=== PATIENT | male | born 1935 | race Caucasian/White ===

== ENCOUNTER 2018-03-19 10:32 | Inpatient (IN) | payer MEDICARE ==
[2018-03-19 12:14] LABS: ABSOLUTE EOSINOPHILS # (AUTO) 0.2 10^3/uL (0.0-0.6); ABSOLUTE MONOCYTES (AUTO) 1.6 10^3/uL (0.1-1.4); ABSOLUTE NEUT (AUTO) 7.8 10^3/uL (1.7-8.2); BASOPHILS % (AUTO) 0.4 % (0-2); EOSINOPHILS % (AUTO) 1.8 % (0-6); HEMOGLOBIN 14.8 g/dL (13.5-17.0); LYMPHOCYTES % (AUTO) 17.2 % (13-45); MEAN CORPUSCULAR HEMOGLOBIN 31.1 pg (27.0-33.4); MEAN CORPUSCULAR HGB CONC 34.3 g/dL (32.0-36.0); MEAN CORPUSCULAR VOLUME 90 fl (80-97); MONOCYTES % (AUTO) 13.4 % (3-13); PLATELET COUNT 238 10^3/uL (150-450); RED BLOOD COUNT 4.76 10^6/uL (4.35-5.55); RED CELL DISTRIBUTION WIDTH 14.6 % (11.5-14.0); SEGMENTED NEUTROPHILS % (AUTO) 67.2 % (42-78); TOTAL CELLS COUNTED % (AUTO) 100 %; WHITE BLOOD COUNT 11.6 10^3/uL (4.0-10.5)
[2018-03-19 12:30] LABS: ALANINE AMINOTRANSFERASE 13 U/L (21-72); ALBUMIN 4.1 g/dL (3.5-5.0); ALKALINE PHOSPHATASE 100 U/L (38-126); ANION GAP 11 (5-19); ASPARTATE AMINO TRANSFERASE 16 U/L (17-59); BILIRUBIN,DIRECT 0.3 mg/dL (0.0-0.4); BLOOD UREA NITROGEN 8 mg/dL (7-20); CALCIUM 9.5 mg/dL (8.4-10.2); CARBON DIOXIDE 29 mmol/L (22-30); CHLORIDE 98 mmol/L (98-107); CREATINE KINASE 62 U/L (55-170); GLUCOSE 116 mg/dL (75-110); POTASSIUM 4.3 mmol/L (3.6-5.0); SODIUM 137.6 mmol/L (137-145)
[2018-03-19 12:42] LABS: APPEARANCE,URINE SLIGHTLY-CLOUDY; BILIRUBIN,URINE NEGATIVE (NEGATIVE); COLOR,URINE YELLOW; GLUCOSE, URINE NEGATIVE (NEGATIVE); KETONES,URINE NEGATIVE (NEGATIVE); LEUKOCYTE ESTERASE,URINE TRACE (NEGATIVE); NITRITE,URINE POSITIVE (NEGATIVE); PROTEIN,URINE 30 mg/dL (NEGATIVE); URINE SPECIFIC GRAVITY 1.016
[2018-03-19 12:42] LABS: CREATINE KINASE MB 1.26 ng/mL (<4.55)
[2018-03-19 12:48] LABS: TROPONIN I < 0.012 ng/mL
[2018-03-19 13:07] LABS: AMORPHOUS SEDIMENT,URINE 2 /HPF
--- NOTE | 2018-03-19 14:08 | RADIOLOGY REPORT (SQ) ---
EXAM DESCRIPTION: CTA CHEST COMPLETED DATE/TIME: 03/19/2018 1:41 pm REASON FOR STUDY: acute hypoxia COMPARISON: CT chest, 04/23/2010 TECHNIQUE: CT scan of the chest performed using helical scanning technique with dynamic intravenous contrast injection. Images reviewed with lung, soft tissue and bone windows. Reconstructed coronal and sagittal MPR images reviewed. Additional 3 dimensional post-processing performed to develop Maximal Intensity Projection images ([place] P). All images stored on PACS. All CT scanners at this facility use dose modulation, iterative reconstruction, and/or weight based d osing when appropriate to reduce radiation dose to as low as reasonably achievable (ALARA). [facility]: Dose Right [facility]: CareDose [facility]: Dose Right [facility]: Teradose 4D [facility]: [employer] CONTRAST TYPE AND DOSE: contrast/concentration: Isovue 350.00 mg/ml; Total Contrast Delivered: 84.0 ml; Total Saline Delivered: 82.1 ml Contrast bolus optimized for the pulmonary arteries. Not diagnostic for the aorta. RENAL FUNCTION: GFR > 60. RADIATION DOSE: CT Rad equipment meets quality standard of care and radiation dose reduction techniq ues were employed. CTDIvol: 16.5 - 24.4 mGy. DLP: 972 mGy-cm. . LIMITATIONS: Breath motion artifact. FINDINGS: LUNGS AND PLEURA: No masses, infiltrates, or pneumothorax. No pleural effusions or pleura l calcifications. Diffuse bilateral bronchial wall thickening. AORTA AND GREAT VESSELS: No aneurysm. Contrast bolus not optimized for the aorta. Calcific atherosc lerosis. HEART: No pericardial effusion. Three-vessel coronary artery calcifications. PULMONARY ARTERIES: No emboli visualized in the main pulmonary arteries or the segmental branches. HILAR AND MEDIASTINAL STRUCTURES: No identified masses or abnormal nodes. HARDWARE: None in the chest. UPPER ABDOMEN: No significant findings. Limited exam. THYROID AND OTHER SOFT TISSUES: No masses. No adenopathy. 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 3D MIPS: Confirm above findings. OTHER: No other significant finding. IMPRESSION: 1. Examination is limited by breath motion artifact, particularly in the bilateral lung bases. Within this limitation, negative examination for pulmonary embolism through the segmental pu lmonary arterial level. 2. Diffuse bilateral nonspecific infectious or inflammatory bronchial wall thickening. 3. Coronary artery disease. COMMENT: Quality ID # [id number]: Final reports with documentation of one or more dose reduction techniques (e.g., Automated exposure control, adjustment of the mA and/or kV according to patient size, use of iterative reconstruction technique) TECHNICAL DOCUMENTATION: JOB ID: [id number] [employer]- All Rights Reserved Reading location - IP/workstation name: [email or web address]
[2018-03-19] MEDS: IPRATROPIUM/ALBUTEROL 0.5-2.5 MG/3 ML AMPUL NEB SCH ×5 (14:25→22:08)
[2018-03-19] MEDS: LEVOFLOXACIN 750 MG/D5W RTU 750 MG/150 ML RTUPB IV SCH (14:25)
[2018-03-19] MEDS: NORMAL SALINE 1000 ML 1,000 ML IV PRN (14:26)
[2018-03-19] MEDS: METHYLPREDNISOLONE INJ 125 MG/2 ML SDV IV SCH ×2 (14:26→21:58)
[2018-03-19 18:10] LABS: ARTERIAL BLOOD BASE EXCESS 0.1 mmol/L; ARTERIAL BLOOD H2CO3 0.91 mmol/L (1.05-1.35); ARTERIAL BLOOD HCO3 22.3 mmol/L (20-24); ARTERIAL BLOOD O2 SATURATION 95.1 % (94-98); ARTERIAL BLOOD PCO2 30.1 mmHg (35-45); ARTERIAL BLOOD PH 7.49 (7.35-7.45); ARTERIAL BLOOD PO2 68.1 mmHg (80-100); ARTERIAL BLOOD TOTAL CO2 23.2 mmol/L (23-27)
[2018-03-19 18:11] LABS: ARTERIAL BLOOD FIO2 ROOM AIR
--- NOTE | 2018-03-19 19:58 | PDOC H&P ---
History of Present Illness Admission Date/PCP: 03/19/18 14:53 DANIEL ROWE MD History of Present Illness: VIN LA JR is a 82 year old male, He has a history of coronary artery disease status post coronary artery stent placement, peripheral vascular disease status post stent placements of the peripheral blood vessels of the lower extremities, COPD, more than 30-year pack smoking history still a current smoker he came to the office today without any appointment for evaluation of shortness of breath and wheezing he was audibly wheezing in respiratory distress in the office the oxygen saturation was 87%. He was admitted directly from the office to the hospital ,arterial blood gas on room air was done, it demonstrated pH 7.49, PCO2 30.1 PO2 68.1 bicarbonate 22.3. CTA chest was done ,Pulmonary embolism was ruled out, the CTA chest demonstrated diffuse bilateral bronchial wall thickening. There was no pulmonary parenchymal consolidation Past Medical History Cardiac Medical History: Reports: Coronary Artery Disease - STENTS X3, Myocardial Infarction, Hyperlipidema, Hypertension Pulmonary Medical History: Reports: Chronic Obstructive Pulmonary Disease (COPD), Pneumonia Musculoskeltal Medical History: Reports: Arthritis - SHOULDERS Past Surgical History Past Surgical History: Reports: Cardiac Catheterization - stents placed Social History Smoking Status: Current Some Day Smoker - Advance Directive Resuscitation Status: Full Code Family History Parental Family History Reviewed: Yes Children Family History Reviewed: Yes Sibling(s) Family History Reviewed.: Yes Medication/Allergy Home Medications: Amlodipine Besylate [Norvasc 5 mg Tablet] 5 mg PO DAILY 03/19/18 Atorvastatin Calcium [Lipitor 40 mg Tablet] 40 mg PO DAILY 03/19/18 Carvedilol [Coreg 6.25 mg Tablet] 6.25 mg PO Q12 03/19/18 Clopidogrel Bisulfate [Plavix 75 mg Tablet] 75 mg PO DAILY 03/19/18 Losartan Potassium [Cozaar 100 mg Tablet] 100 mg PO DAILY 03/19/18 Metformin HCl [Metformin ER Osmotic] 500 mg PO DAILY 03/19/18 Tiotropium [place] [Spiriva Handihaler 5 Cap/Kit (18 Mcg/Cap)] 1 cap IN DAILY 03/19/18 Allergies/Adverse Reactions: codeine [Codeine] Allergy (Severe, Verified 03/19/18 16:29) Anaphylaxis Penicillins Allergy (Severe, Verified 03/19/18 16:29) Anaphylaxis aspirin [Aspirin] Allergy (Mild, Verified 03/19/18 16:29) RASH Review of Systems Constitutional: ABSENT: chills, fever(s), headache(s), weight gain, weight loss Eyes: ABSENT: visual disturbances Ears: ABSENT: hearing changes Cardiovascular: ABSENT: chest pain, dyspnea on exertion, edema, orthropnea, palpitations Respiratory: PRESENT: cough, dyspnea, sputum Gastrointestinal: ABSENT: abdominal pain, constipation, diarrhea, hematemesis, hematochezia, nausea, vomiting Genitourinary: ABSENT: dysuria, hematuria Musculoskeletal: ABSENT: joint swelling Integumentary: ABSENT: rash, wounds Neurological: ABSENT: abnormal gait, abnormal speech, confusion, dizziness, foc al weakness, syncope Psychiatric: ABSENT: anxiety, depression, homidical ideation, suicidal ideation Endocrine: ABSENT: cold intolerance, heat intolerance, menstrual abnormalities, polydipsia, polyuria Hematologic/Lymphatic: ABSENT: easy bleeding, easy bruising, lymphadenopathy Physical Exam Vital Signs: Temp Pulse Resp BP Pulse Ox 98.0 F 75 19 138/72 H 94 03/19/18 16:30 03/19/18 10:45 03/19/18 18:01 03/19/18 18:01 03/19/18 18:56 Intake & Output 03/18/18 03/19/18 03/20/18 06:59 06:59 06:59 Intake Total 150 Balance 150 Weight 99.9 kg General appearance: PRESENT: mild distress Head exam: PRESENT: atraumatic, normocephalic Eye exam: PRESENT: PERRLA Ear exam: PRESENT: normal external ear exam Mouth exam: PRESENT: moist, tongue midline Neck exam: PRESENT: full ROM Respiratory exam: PRESENT: wheezes Cardiovascular exam: PRESENT: RRR, +S1, +S2 Pulses: PRESENT: normal dorsalis pedis pul, +2 pedal pulses bilateral Vascular exam: PRESENT: normal capillary refill GI/Abdominal exam: PRESENT: normal bowel sounds, soft Rectal exam: PRESENT: deferred Neurological exam: PRESENT: alert, CN II-XII grossly intact Psychiatric exam: PRESENT: appropriate affect, normal mood Skin exam: PRESENT: dry, intact, warm Results Laboratory Results: 03/19/18 11:51 03/19/18 11:51 03/19/18 03/19/18 03/19/18 11:51 11:51 12:07 WBC 11.6 H RBC 4.76 Hgb 14.8 Hct 43.0 MCV 90 MCH 31.1 MCHC 34.3 RDW 14.6 H Plt Count 238 Seg Neutrophils % 67.2 Lymphocytes % 17.2 Monocytes % 13.4 H Eosinophils % 1.8 Basophils % 0.4 Absolute Neutrophils 7.8 Absolute Lymphocytes 2.0 Absolute Monocytes 1.6 H Absolute Eosinophils 0.2 Absolute Basophils 0.0 Carbonic Acid HCO3/H2CO3 Ratio ABG pH ABG pCO2 ABG pO2 ABG HCO3 ABG O2 Saturation ABG Base Excess FiO2 Sodium 137.6 Potassium 4.3 Chloride 98 Carbon Dioxide 29 Anion Gap 11 BUN 8 Creatinine 0.62 Est GFR ( Amer) > 60 Est GFR (Non-Af Amer) > 60 Glucose 116 H Calcium 9.5 Total Bilirubin 1.0 AST 16 L ALT 13 L Alkaline Phosphatase 100 Total Protein 7.0 Albumin 4.1 Urine Color YELLOW Urine Appearance SLIGHTLY-CLOUDY Urine pH 6.0 Ur Specific [place] 1.016 Urine Protein 30 H Urine Glucose (UA) NEGATIVE Urine Ketones NEGATIVE Urine Blood SMALL H Urine Nitrite POSITIVE H Ur Leukocyte Esterase TRACE H Urine WBC (Auto) 5 Urine RBC (Auto) 3 03/19/18 17:49 WBC RBC Hgb Hct MCV MCH MCHC RDW Plt Count Seg Neutrophils % Lymphocytes % Monocytes % Eosinophils % Basophils % Absolute Neutrophils Absolute Lymphocytes Absolute Monocytes Absolute Eosinophils Absolute Basophils Carbonic Acid 0.91 L HCO3/H2CO3 Ratio 24:1 ABG pH 7.49 H ABG pCO2 30.1 L ABG pO2 68.1 L ABG HCO3 22.3 ABG O2 Saturation 95.1 ABG Base Excess 0.1 FiO2 ROOM AIR Sodium Potassium Chloride Carbon Dioxide Anion Gap BUN Creatinine Est GFR ( Amer) Est GFR (Non-Af Amer) Glucose Calcium Total Bilirubin AST ALT Alkaline Phosphatase Total Protein Albumin Urine Color Urine Appearance Urine pH Ur Specific [place] Urine Protein Urine Glucose (UA) Urine Ketones Urine Blood Urine Nitrite Ur Leukocyte Esterase Urine WBC (Auto) Urine RBC (Auto) 03/19/18 03/19/18 11:51 11:51 Creatine Kinase 62 CK-MB (CK-2) 1.26 Troponin I < 0.012 Impressions: Chest/Abdomen CTA 03/19/18 00:00 IMPRESSION: 1. Examination is limited by breath motion artifact, particularly in the bilateral lung bases. Within this limitation, negative examination for pulmonary embolism through the segmental pulmonary arterial level. 2. Diffuse bilateral nonspecific infectious or inflammatory bronchial wall thickening. 3. Coronary artery disease. Assessment & Plan - Diagnosis (1) Acute hypoxemic respiratory failure Is this a current diagnosis for this admission?: Yes Plan: Continue oxygen via nasal cannula patient does not presently require noninvasive positive pressure ventilation with BiPAP (2) Respiratory alkalosis Is this a current diagnosis for this admission?: Yes (3) Chronic obstructive pulmonary disease with (acute) exacerbation Is this a current diagnosis for this admission?: Yes Plan: Start IV Solu-Medrol, bronchodilators, IV antibiotic (4) Coronary artery disease Qualifiers: Coronary Disease-Associated Artery/Lesion type: [place] artery [place] vs. transplanted heart: [place] heart Associated angina: without angina Qualified Code(s): I25.10 - Atherosclerotic heart disease of [place] coronary artery without angina pectoris Is this a current diagnosis for this admission?: Yes (5) Peripheral vascular disease Is this a current diagnosis for this admission?: Yes
[2018-03-19] MEDS ORDERED: METFORMIN HCL 500 MG PO SCH (20:00)
[2018-03-19] MEDS ORDERED: ENOXAPARIN SODIUM INJ 30 MG/0.3 ML DISP.SYRIN SUBCUT SCH (20:00)
[2018-03-19 20:53] LABS: CREATINE KINASE MB 1.07 ng/mL (<4.55)
[2018-03-19 20:56] LABS: TROPONIN I < 0.012 ng/mL
[2018-03-19] MEDS: ATORVASTATIN CALCIUM 40 MG TABLET PO SCH (21:58)
[2018-03-19] MEDS: LOSARTAN POTASSIUM 50 MG TABLET PO SCH (21:59)
[2018-03-19] MEDS: AMLODIPINE BESYLATE 5 MG TABLET PO SCH (21:59)
[2018-03-19] MEDS: METFORMIN HCL 500 MG TABLET PO SCH (21:59)
[2018-03-19] MEDS: ENOXAPARIN SODIUM INJ 40 MG/0.4 ML DISP.SYRIN SUBCUT SCH (22:00)
[2018-03-19] MEDS: CLOPIDOGREL BISULFATE 75 MG TABLET PO SCH (22:00)
--- NOTE | 2018-03-19 23:19 | EKG REPORT ---
SEVERITY:- ABNORMAL ECG - SINUS RHYTHM FIRST DEGREE AV BLOCK ABNRM R PROG, CONSIDER ASMI OR LEAD PLACEMENT : Confirmed by: Elzbieta Urrutia MD 19-Mar-2018 23:19:14
[2018-03-20] MEDS: IPRATROPIUM/ALBUTEROL 0.5-2.5 MG/3 ML AMPUL NEB SCH ×9 (00:23→16:46)
[2018-03-20] MEDS: NORMAL SALINE 1000 ML 1,000 ML IV PRN (03:07)
[2018-03-20 05:25] LABS: CREATINE KINASE MB 1.79 ng/mL (<4.55)
[2018-03-20 05:29] LABS: TROPONIN I < 0.012 ng/mL
[2018-03-20] MEDS: METHYLPREDNISOLONE INJ 125 MG/2 ML SDV IV SCH ×3 (05:49→21:52)
[2018-03-20] MEDS ORDERED: LOSARTAN POTASSIUM 50 MG TABLET PO SCH (10:00)
[2018-03-20] MEDS: AMLODIPINE BESYLATE 5 MG TABLET PO SCH (10:34)
[2018-03-20] MEDS: CLOPIDOGREL BISULFATE 75 MG TABLET PO SCH (10:35)
[2018-03-20] MEDS: ENOXAPARIN SODIUM INJ 40 MG/0.4 ML DISP.SYRIN SUBCUT SCH (10:35)
[2018-03-20] MEDS: METFORMIN HCL 500 MG TABLET PO SCH (10:35)
[2018-03-20] MEDS: LOSARTAN POTASSIUM 50 MG TABLET PO SCH (10:35)
[2018-03-20] MEDS: TIOTROPIUM BROMIDE DPI 5 CAP/KIT (18 MCG/CAP) IH SCH (10:38)
[2018-03-20] MEDS: LEVOFLOXACIN 750 MG/D5W RTU 750 MG/150 ML RTUPB IV SCH (10:38)
--- NOTE | 2018-03-20 18:25 | PDOC PROGRESS REPORT ---
Subjective Progress Note for:: 03/20/18 Subjective:: Patient was seen by the bedside, he was admitted yesterday for the management of acute COPD exacerbation associated with acute respiratory failure presently on IV Solu-Medrol, he was on bronchodilators every 2 hours Reason For Visit: ACUTE HYPOXIMIA,RESP FAILURE,PE?,COPD,CAD Physical Exam Vital Signs: Temp Pulse Resp BP Pulse Ox 98.6 F 100 18 109/63 96 03/20/18 15:17 03/20/18 16:46 03/20/18 16:46 03/20/18 15:17 03/20/18 16:46 Intake & Output 03/19/18 03/20/18 03/21/18 06:59 06:59 06:59 Intake Total 1150 Balance 1150 Weight 100.6 kg Head exam: PRESENT: atraumatic, normocephalic Eye exam: PRESENT: PERRLA Respiratory exam: PRESENT: clear to auscultation lillian Cardiovascular exam: PRESENT: +S1, +S2 Neurological exam: PRESENT: alert Results Laboratory Results: 03/19/18 11:51 03/19/18 11:51 03/19/18 03/19/18 03/19/18 11:51 11:51 20:00 Creatine Kinase 62 68 CK-MB (CK-2) 1.26 Troponin I < 0.012 03/19/18 03/20/18 03/20/18 20:00 03:57 03:57 Creatine Kinase 80 CK-MB (CK-2) 1.07 1.79 Troponin I < 0.012 < 0.012 Impressions: Chest/Abdomen CTA 03/19/18 00:00 IMPRESSION: 1. Examination is limited by breath motion artifact, particularly in the bilateral lung bases. Within this limitation, negative examination for pulmonary embolism through the segmental pulmonary arterial level. 2. Diffuse bilateral nonspecific infectious or inflammatory bronchial wall thickening. 3. Coronary artery disease. Assessment & Plan - Diagnosis (1) Acute hypoxemic respiratory failure Is this a current diagnosis for this admission?: Yes (2) Respiratory alkalosis Is this a current diagnosis for this admission?: Yes (3) Chronic obstructive pulmonary disease with (acute) exacerbation Is this a current diagnosis for this admission?: Yes Plan: Continue high-dose Solu-Medrol, 125 mg IV every 8 for a total of 3 days, reduce frequency of bronchodilators to every 4-6 hours from every 2 hours (4) Coronary artery disease Qualifiers: Coronary Disease-Associated Artery/Lesion type: [place] artery [place] vs. transplanted heart: [place] heart Associated angina: without angina Qualified Code(s): I25.10 - Atherosclerotic heart disease of [place] coronary artery without angina pectoris Is this a current diagnosis for this admission?: Yes Plan: Continue maintainnance therapy (5) Peripheral vascular disease Is this a current diagnosis for this admission?: Yes
[2018-03-20] MEDS: IPRATROPIUM/ALBUTEROL 0.5-2.5 MG/3 ML AMPUL NEB PRN (20:45)
[2018-03-20] MEDS: ATORVASTATIN CALCIUM 40 MG TABLET PO SCH (21:52)
[2018-03-21] MEDS: IPRATROPIUM/ALBUTEROL 0.5-2.5 MG/3 ML AMPUL NEB PRN ×3 (00:13→12:07)
[2018-03-21] MEDS: METHYLPREDNISOLONE INJ 125 MG/2 ML SDV IV SCH ×3 (05:55→21:31)
[2018-03-21] MEDS: LOSARTAN POTASSIUM 50 MG TABLET PO SCH (10:09)
[2018-03-21] MEDS: LEVOFLOXACIN 750 MG TABLET PO SCH (10:10)
[2018-03-21] MEDS: METFORMIN HCL 500 MG TABLET PO SCH (10:11)
[2018-03-21] MEDS: CLOPIDOGREL BISULFATE 75 MG TABLET PO SCH (10:12)
[2018-03-21] MEDS: AMLODIPINE BESYLATE 5 MG TABLET PO SCH (10:12)
[2018-03-21] MEDS: ENOXAPARIN SODIUM INJ 40 MG/0.4 ML DISP.SYRIN SUBCUT SCH (10:14)
[2018-03-21] MEDS: TIOTROPIUM BROMIDE DPI 5 CAP/KIT (18 MCG/CAP) IH SCH (10:19)
[2018-03-21] MEDS: GUAIFENESIN 600 MG TABLET.SA PO SCH ×2 (11:05→21:31)
[2018-03-21] MEDS: NICOTINE 21 MG/24 HR PATCH.TD24 TD SCH (11:46)
--- NOTE | 2018-03-21 16:35 | PDOC PROGRESS REPORT ---
Subjective Progress Note for:: 03/21/18 Subjective:: Patient was seen by the bedside, is not ready for discharge yet, he will continue IV Solu-Medrol for another day, hopefully transition to p.o. prednisone tomorrow Reason For Visit: ACUTE HYPOXIMIA,RESP FAILURE,PE?,COPD,CAD Physical Exam Vital Signs: Temp Pulse Resp BP Pulse Ox 97.6 F 87 22 H 129/62 H 100 03/21/18 15:58 03/21/18 15:58 03/21/18 15:58 03/21/18 15:58 03/21/18 15:58 Intake & Output 03/20/18 03/21/18 03/22/18 06:59 06:59 06:59 Intake Total 1150 1050 350 Balance 1150 1050 350 Weight 100.6 kg 100.2 kg General appearance: PRESENT: mild distress Eye exam: PRESENT: PERRLA Respiratory exam: PRESENT: wheezes Cardiovascular exam: PRESENT: +S1, +S2 GI/Abdominal exam: PRESENT: soft Neurological exam: PRESENT: alert Results Laboratory Results: 03/19/18 11:51 03/19/18 11:51 03/19/18 03/19/18 03/19/18 11:51 11:51 20:00 Creatine Kinase 62 68 CK-MB (CK-2) 1.26 Troponin I < 0.012 03/19/18 03/20/18 03/20/18 20:00 03:57 03:57 Creatine Kinase 80 CK-MB (CK-2) 1.07 1.79 Troponin I < 0.012 < 0.012 Impressions: Chest/Abdomen CTA 03/19/18 00:00 IMPRESSION: 1. Examination is limited by breath motion artifact, particularly in the bilateral lung bases. Within this limitation, negative examination for pulmonary embolism through the segmental pulmonary arterial level. 2. Diffuse bilateral nonspecific infectious or inflammatory bronchial wall thickening. 3. Coronary artery disease. Assessment & Plan - Diagnosis (1) Acute hypoxemic respiratory failure Is this a current diagnosis for this admission?: Yes (2) Respiratory alkalosis Is this a current diagnosis for this admission?: Yes (3) Chronic obstructive pulmonary disease with (acute) exacerbation Is this a current diagnosis for this admission?: Yes Plan: Continue IV Solu-Medrol, bronchodilators, antibiotic (4) Coronary artery disease Qualifiers: Coronary Disease-Associated Artery/Lesion type: [place] artery [place] vs. transplanted heart: [place] heart Associated angina: without angina Qualified Code(s): I25.10 - Atherosclerotic heart disease of [place] coronary artery without angina pectoris Is this a current diagnosis for this admission?: Yes (5) Peripheral vascular disease Is this a current diagnosis for this admission?: Yes
[2018-03-21] MEDS: ATORVASTATIN CALCIUM 40 MG TABLET PO SCH (21:31)
[2018-03-22] MEDS: METHYLPREDNISOLONE INJ 125 MG/2 ML SDV IV SCH ×3 (05:35→21:43)
[2018-03-22] MEDS: NICOTINE 21 MG/24 HR PATCH.TD24 TD SCH (09:37)
[2018-03-22] MEDS: METFORMIN HCL 500 MG TABLET PO SCH (09:37)
[2018-03-22] MEDS: CLOPIDOGREL BISULFATE 75 MG TABLET PO SCH (09:38)
[2018-03-22] MEDS: GUAIFENESIN 600 MG TABLET.SA PO SCH ×2 (09:38→21:44)
[2018-03-22] MEDS: AMLODIPINE BESYLATE 5 MG TABLET PO SCH (09:38)
[2018-03-22] MEDS: ENOXAPARIN SODIUM INJ 40 MG/0.4 ML DISP.SYRIN SUBCUT SCH (09:38)
[2018-03-22] MEDS: TIOTROPIUM BROMIDE DPI 5 CAP/KIT (18 MCG/CAP) IH SCH (09:38)
[2018-03-22] MEDS: LOSARTAN POTASSIUM 50 MG TABLET PO SCH (09:38)
[2018-03-22] MEDS: LEVOFLOXACIN 750 MG TABLET PO SCH (09:38)
[2018-03-22 14:49] LABS: ABSOLUTE LYMPHOCYTES (AUTO) 0.7 10^3/uL (0.5-4.7); ABSOLUTE MONOCYTES (AUTO) 0.9 10^3/uL (0.1-1.4); ABSOLUTE NEUT (AUTO) 7.2 10^3/uL (1.7-8.2); BASOPHILS % (AUTO) 0.2 % (0-2); HEMATOCRIT 43.5 % (37.9-51.0); HEMOGLOBIN 15.1 g/dL (13.5-17.0); LYMPHOCYTES % (AUTO) 8.2 % (13-45); MEAN CORPUSCULAR HEMOGLOBIN 31.5 pg (27.0-33.4); MEAN CORPUSCULAR HGB CONC 34.7 g/dL (32.0-36.0); MEAN CORPUSCULAR VOLUME 91 fl (80-97); MONOCYTES % (AUTO) 9.8 % (3-13); PLATELET COUNT 325 10^3/uL (150-450); RED CELL DISTRIBUTION WIDTH 14.5 % (11.5-14.0); SEGMENTED NEUTROPHILS % (AUTO) 81.8 % (42-78); TOTAL CELLS COUNTED % (AUTO) 100 %; WHITE BLOOD COUNT 8.8 10^3/uL (4.0-10.5)
[2018-03-22 15:09] LABS: ANION GAP 13 (5-19); BLOOD UREA NITROGEN 24 mg/dL (7-20); CALCIUM 9.9 mg/dL (8.4-10.2); CARBON DIOXIDE 28 mmol/L (22-30); CHLORIDE 99 mmol/L (98-107); GLUCOSE 179 mg/dL (75-110); POTASSIUM 4.3 mmol/L (3.6-5.0); SODIUM 140.1 mmol/L (137-145)
--- NOTE | 2018-03-22 18:58 | PDOC PROGRESS REPORT ---
Subjective Progress Note for:: 03/22/18 Subjective:: Patient was seen by the bedside, he is improving on Solu-Medrol 125 IV every 8, hopefully discharge him tomorrow Reason For Visit: ACUTE HYPOXIMIA,RESP FAILURE,PE?,COPD,CAD Physical Exam Vital Signs: Temp Pulse Resp BP Pulse Ox 97.2 F 75 18 137/74 H 98 03/22/18 15:28 03/22/18 15:28 03/22/18 15:28 03/22/18 15:28 03/22/18 15:28 Intake & Output 03/21/18 03/22/18 03/23/18 06:59 06:59 06:59 Intake Total 9151 825 4850 Balance 2097 999 3694 Weight 100.2 kg 100.6 kg General appearance: PRESENT: no acute distress Eye exam: PRESENT: PERRLA Respiratory exam: PRESENT: wheezes Cardiovascular exam: PRESENT: +S1, +S2 GI/Abdominal exam: PRESENT: soft Neurological exam: PRESENT: alert Results Laboratory Results: 03/22/18 14:39 03/22/18 14:39 03/22/18 03/22/18 14:39 14:39 WBC 8.8 RBC 4.80 Hgb 15.1 Hct 43.5 MCV 91 MCH 31.5 MCHC 34.7 RDW 14.5 H Plt Count 325 Seg Neutrophils % 81.8 H Lymphocytes % 8.2 L Monocytes % 9.8 Eosinophils % 0.0 Basophils % 0.2 Absolute Neutrophils 7.2 Absolute Lymphocytes 0.7 Absolute Monocytes 0.9 Absolute Eosinophils 0.0 Absolute Basophils 0.0 Sodium 140.1 Potassium 4.3 Chloride 99 Carbon Dioxide 28 Anion Gap 13 BUN 24 H Creatinine 0.78 Est GFR ( Amer) > 60 Est GFR (Non-Af Amer) > 60 Glucose 179 H Calcium 9.9 03/19/18 03/19/18 03/19/18 11:51 11:51 20:00 Creatine Kinase 62 68 CK-MB (CK-2) 1.26 Troponin I < 0.012 03/19/18 03/20/18 03/20/18 20:00 03:57 03:57 Creatine Kinase 80 CK-MB (CK-2) 1.07 1.79 Troponin I < 0.012 < 0.012 Impressions: Chest/Abdomen CTA 03/19/18 00:00 IMPRESSION: 1. Examination is limited by breath motion artifact, particularly in the bilateral lung bases. Within this limitation, negative examination for pulmonary embolism through the segmental pulmonary arterial level. 2. Diffuse bilateral nonspecific infectious or inflammatory bronchial wall thi ckening. 3. Coronary artery disease. Assessment & Plan - Diagnosis (1) Acute hypoxemic respiratory failure Is this a current diagnosis for this admission?: Yes (2) Respiratory alkalosis Is this a current diagnosis for this admission?: Yes (3) Chronic obstructive pulmonary disease with (acute) exacerbation Is this a current diagnosis for this admission?: Yes (4) Coronary artery disease Qualifiers: Coronary Disease-Associated Artery/Lesion type: [place] artery [place] vs. transplanted heart: [place] heart Associated angina: without angina Qualified Code(s): I25.10 - Atherosclerotic heart disease of [place] coronary artery without angina pectoris Is this a current diagnosis for this admission?: Yes (5) Peripheral vascular disease Is this a current diagnosis for this admission?: Yes
--- NOTE | 2018-03-22 19:16 | PDOC DISCHARGE SUMMARY ---
General - Admit/Disc Date/PCP Admission Date/Primary Care Provider: 03/19/18 14:53 DANIEL ROWE MD Discharge Date: 03/23/18 - Discharge Diagnosis (1) Acute hypoxemic respiratory failure Is this a current diagnosis for this admission?: Yes (2) Respiratory alkalosis Is this a current diagnosis for this admission?: Yes (3) Chronic obstructive pulmonary disease with (acute) exacerbation Is this a current diagnosis for this admission?: Yes (4) Coronary artery disease Is this a current diagnosis for this admission?: Yes (5) Peripheral vascular disease Is this a current diagnosis for this admission?: Yes - Additional Information Resuscitation Status: Full Code Prescriptions: Fluticasone/Umeclidin/Vilanter [Trelegy 100-62.5-25 Mcg Ellipta 14 Dose/Dpi] 1 each IN DAILY #2 inhaler Levofloxacin [Levaquin 750 mg Tablet] 750 mg PO DAILY #3 tablet Metoprolol Succinate [[place]sp[place] Sprinkle] 50 mg PO DAILY #90 cap.spr.24 Nicotine [Nicoderm 21 mg/24 Hr Transderm Patch] 1 each TD DAILY #30 patch.td24 Prednisone 10 mg PO DAILY #48 tab.ds.pk Home Medications: Amlodipine Besylate [Norvasc 5 mg Tablet] 5 mg PO DAILY 03/19/18 Atorvastatin Calcium [Lipitor 40 mg Tablet] 40 mg PO DAILY 03/19/18 Clopidogrel Bisulfate [Plavix 75 mg Tablet] 75 mg PO DAILY 03/19/18 Losartan Potassium [Cozaar 100 mg Tablet] 100 mg PO DAILY 03/19/18 Metformin HCl [Glucophage 500 mg Tablet] 500 mg PO DAILY 03/19/18 Fluticasone/Umeclidin/Vilanter [Trelegy 100-62.5-25 Mcg Ellipta 14 Dose/Dpi] 1 each IN DAILY #2 inhaler 03/22/18 Levofloxacin [Levaquin 750 mg Tablet] 750 mg PO DAILY #3 tablet 03/22/18 Metformin HCl [Glucophage 500 mg Tablet] 500 mg PO DAILY tablet 03/22/18 Metoprolol Succinate [[place] Sprinkle] 50 mg PO DAILY #90 cap.spr.24 03/22/18 Nicotine [Nicoderm 21 mg/24 Hr Transderm Patch] 1 each TD DAILY #30 patch.td24 03/22/18 Prednisone 10 mg PO DAILY #48 tab.ds.pk 03/22/18 History of Present Illness History of Present Illness: VIN LA JR is a 82 year old male, He has a history of coronary artery disease status post coronary artery stent placement, peripheral vascular disease status post stent placements of the peripheral blood vessels of the lower extremities, COPD, more than 30-year pack smoking history still a current smoker he came to the office today without any appointment for evaluation of shortness of breath and wheezing he was audibly wheezing in respiratory distress in the office the oxygen saturation was 87%. He was admitted directly from the office to the hospital ,arterial blood gas on room air was done, it demonstrated pH 7.49, PCO2 30.1 PO2 68.1 bicarbonate 22.3. CTA chest was done ,Pulmonary embolism was ruled out, the CTA chest demonstrated diffuse bilateral bronchial wall thickening. There was no pulmonary parenchymal consolidation Hospital Course Hospital Course: Patient was admitted for the management of acute COPD exacerbation associated with acute hypoxemic respiratory failure.He was treated with intravenous Solu- Medrol, 125 mg IV every 8 hours , He did not require noninvasive positive pressure ventilation, he was treated with oxygen nasal cannula.He required intravenous Solu-Medrol for prolonged period of time,He was also treated with bronchodilators every 4 hours with good results Physical Exam Vital Signs: Temp Pulse Resp BP Pulse Ox 97.2 F 75 18 137/74 H 98 03/22/18 15:28 03/22/18 15:28 03/22/18 15:28 03/22/18 15:28 03/22/18 15:28 Intake & Output 03/21/18 03/22/18 03/23/18 06:59 06:59 06:59 Intake Total 7366 512 8100 Balance 2650 996 7096 Weight 100.2 kg 100.6 kg General appearance: PRESENT: no acute distress Eye exam: PRESENT: PERRLA Respiratory exam: PRESENT: rhonchi Cardiovascular exam: PRESENT: +S1, +S2 GI/Abdominal exam: PRESENT: soft Neurological exam: PRESENT: alert, CN II-XII grossly intact Results Laboratory Results: 03/22/18 14:39 03/22/18 14:39 03/22/18 03/22/18 14:39 14:39 WBC 8.8 RBC 4.80 Hgb 15.1 Hct 43.5 MCV 91 MCH 31.5 MCHC 34.7 RDW 14.5 H Plt Count 325 Seg Neutrophils % 81.8 H Lymphocytes % 8.2 L Monocytes % 9.8 Eosinophils % 0.0 Basophils % 0.2 Absolute Neutrophils 7.2 Absolute Lymphocytes 0.7 Absolute Monocytes 0.9 Absolute Eosinophils 0.0 Absolute Basophils 0.0 Sodium 140.1 Potassium 4.3 Chloride 99 Carbon Dioxide 28 Anion Gap 13 BUN 24 H Creatinine 0.78 Est GFR ( Amer) > 60 Est GFR (Non-Af Amer) > 60 Glucose 179 H Calcium 9.9 03/19/18 03/19/18 03/19/18 11:51 11:51 20:00 Creatine Kinase 62 68 CK-MB (CK-2) 1.26 Troponin I < 0.012 03/19/18 03/20/18 03/20/18 20:00 03:57 03:57 Creatine Kinase 80 CK-MB (CK-2) 1.07 1.79 Troponin I < 0.012 < 0.012 Impressions: Chest/Abdomen CTA 03/19/18 00:00 IMPRESSION: 1. Examination is limited by breath motion artifact, particularly in the bilateral lung bases. Within this limitation, negative examination for pulmonary embolism through the segmental pulmonary arterial level. 2. Diffuse bilateral nonspecific infectious or inflammatory bronchial wall thickening. 3. Coronary artery disease. Qualifiers - * PATIENT BEING DISCHARGED WITH ANY OF THE FOLLOWING DIAGNOSIS: No
[2018-03-22] MEDS: ATORVASTATIN CALCIUM 40 MG TABLET PO SCH (21:43)
[2018-03-23] MEDS: METHYLPREDNISOLONE INJ 125 MG/2 ML SDV IV SCH (06:16)
[2018-03-23 08:40] VITALS: BP 129/62
== END 2018-03-23 09:46 | disposition home or self-care (01) | DRG 189 ==
LOC: ER 10:32 → EH 14:53 → 3S 18:56
PROVIDERS: ADMIT Internal Medicine; ATTEND Internal Medicine
DX: J96.01 Acute respiratory failure with hypoxia (principal); J44.1 Chronic obstructive pulmonary disease with (acute) exacerbation; E87.3 Alkalosis; I25.10 Atherosclerotic heart disease of native coronary artery without angina pectoris; I73.9 Peripheral vascular disease, unspecified; F17.210 Nicotine dependence, cigarettes, uncomplicated; E78.5 Hyperlipidemia, unspecified; I10 Essential (primary) hypertension; Z95.5 Presence of coronary angioplasty implant and graft; Z88.5 Allergy status to narcotic agent; Z88.0 Allergy status to penicillin; Z88.6 Allergy status to analgesic agent; I25.2 Old myocardial infarction
CPT/HCPCS: 36415; 71275; 80048; 80053; 81001; 82550; 82553; 82803; 83036; 84484; 85025; 87070; 87205; 93005; 93010; J1650; J1956; J2930; J3490; J7030; J7620

== ENCOUNTER 2019-11-12 15:32 | Observation (INO) | payer MEDICARE ==
[2019-11-12] MEDS ORDERED: DIPH/PERTUSS(ACELL)/TETANUS VAC/PF 0.5 ML SYR (>=10YO) IM ONE ×2 (16:42→22:02)
--- NOTE | 2019-11-12 16:46 | ER Document Report ---
ED Medical Screen (RME) - General Chief Complaint: Skin Problem Stated Complaint: INFECTION RT FOOT - DR REFERRED Time Seen by Provider: 11/12/19 16:29 Primary Care Provider: DANIEL ROWE MD [Primary Care Provider] - Follow up as needed TRAVEL OUTSIDE OF THE [place] IN LAST 30 DAYS: No - HPI Notes: 11/12/19 16:43 84-year-old male presents to the emergency room from his doctor's office for evaluation of his right big toe after he states that he got it stuck in a rug approximately 5 days ago, his his right big toe toe partially lacerated 5 days ago. States that he has been applying triple antibiotic ointment. States when he got caught in his rug he also fell on his knee and is complaining of right knee pain. Has not tried any [id number] medication. Able to bear partial weight, does ambulate with a cane. Denies hitting his head or change in level consciousness. Patient denies being a diabetic. Reports pain is 1 out of 5, throbbing at times I have greeted and performed a rapid initial assessment of this patient. A comprehensive ED assessment and evaluation of the patient, analysis of test results and completion of the medical decision making process will be conducted by additional ED providers. PHYSICAL EXAMINATION: SKIN: Warm, Dry, normal turgor, no rashes or lesions noted. R hallux with medial aspect with partial laceration at base of hallux with surrounding erythema, induration and warmth to touch. distal pulses +2 - Related Data Allergies/Adverse Reactions: codeine [Codeine] Allergy (Severe, Verified 03/19/18 16:29) Anaphylaxis Penicillins Allergy (Severe, Verified 03/19/18 16:29) Anaphylaxis aspirin [Aspirin] Allergy (Mild, Verified 03/19/18 16:29) RASH Past Medical History - Social History Chew tobacco use (# tins/day): No Frequency of alcohol use: daily Drug Abuse: None - Past Medical History Cardiac Medical History: Reports: Hx Coronary Artery Disease - STENTS X3, Hx Heart Attack, Hx Hypercholesterolemia, Hx Hypertension Pulmonary Medical History: Reports: Hx COPD, Hx Pneumonia Neurological Medical History: Denies: Hx Cerebrovascular Accident, Hx Seizures Renal/ Medical History: Denies: Hx Peritoneal Dialysis Musculoskeltal Medical History: Reports Hx Arthritis - SHOULDERS Psychiatric Medical History: Denies: Hx Depression Past Surgical History: Reports: Hx Cardiac Catheterization - stents placed - Immunizations Hx Diphtheria, Pertussis, Tetanus Vaccination: Yes Physical Exam - Vital signs Vitals: Temp Pulse Resp BP Pulse Ox 98.4 F 70 16 130/51 H 97 11/12/19 15:47 11/12/19 15:47 11/12/19 15:47 11/12/19 15:47 11/12/19 15:47 Course - Vital Signs Vital signs: Temp Pulse Resp BP Pulse Ox 98.4 F 70 16 130/51 H 97 11/12/19 16:39 11/12/19 15:47 11/12/19 15:47 11/12/19 15:47 11/12/19 15:47 Doctor's Discharge - Discharge Referrals: DANIEL ROWE MD [Primary Care Provider] - Follow up as needed
[2019-11-12 17:13] LABS: ABSOLUTE BASOPHILS # (AUTO) 0.1 10^3/uL (0.0-0.2); ABSOLUTE EOSINOPHILS # (AUTO) 0.2 10^3/uL (0.0-0.6); ABSOLUTE LYMPHOCYTES (AUTO) 2.3 10^3/uL (0.5-4.7); ABSOLUTE NEUT (AUTO) 5.5 10^3/uL (1.7-8.2); BASOPHILS % (AUTO) 0.9 % (0-2); EOSINOPHILS % (AUTO) 2.4 % (0-6); HEMATOCRIT 43.4 % (37.9-51.0); HEMOGLOBIN 15.1 g/dL (13.5-17.0); MEAN CORPUSCULAR HEMOGLOBIN 32.3 pg (27.0-33.4); MEAN CORPUSCULAR HGB CONC 34.8 g/dL (32.0-36.0); MEAN CORPUSCULAR VOLUME 93 fl (80-97); PLATELET COUNT 242 10^3/uL (150-450); RED BLOOD COUNT 4.68 10^6/uL (4.35-5.55); RED CELL DISTRIBUTION WIDTH 14.1 % (11.5-14.0); SEGMENTED NEUTROPHILS % (AUTO) 60.7 % (42-78); TOTAL CELLS COUNTED % (AUTO) 100 %; WHITE BLOOD COUNT 9.1 10^3/uL (4.0-10.5)
[2019-11-12 17:30] LABS: ANION GAP 9 (5-19); BLOOD UREA NITROGEN 9 mg/dL (7-20); CALCIUM 9.6 mg/dL (8.4-10.2); CARBON DIOXIDE 27 mmol/L (22-30); CHLORIDE 99 mmol/L (98-107); GLUCOSE 113 mg/dL (75-110); POTASSIUM 4.5 mmol/L (3.6-5.0)
--- NOTE | 2019-11-12 17:46 | RADIOLOGY REPORT (SQ) ---
EXAM DESCRIPTION: TOE RIGHT IMAGES COMPLETED DATE/TIME: 11/12/2019 5:31 pm REASON FOR STUDY: R big toe erythema, induration, old laceration COMPARISON: None. NUMBER OF VIEWS: Three views. TECHNIQUE: AP, lateral, and oblique images acquired of the right first toe. LIMITATIONS: None. FINDINGS: MINERALIZATION: Normal. BONES: No acute fracture, erosions or destruction of bone, or dislocation. Bipartite tibial sesamoid bone overlies the head of the first metatarsal bone, normal anatomic variant. JOINTS: Mild degenerative changes first metatarsophalangeal joint. SOFT TISSUES: No soft tissue swelling. No foreign body. OTHER: No other significant finding. IMPRESSION: 1. No acute osseous findings. No evidence of opaque foreign objects. COMMENT: SITE OF TRAUMA/COMPLAINT MARKED/STAMP COMPLETED: YES. TECHNICAL DOCUMENTATION: JOB ID: [id number] 2010 [employer]- All Rights Reserved Reading location - IP/workstation name: [email or web address]
--- NOTE | 2019-11-12 17:47 | RADIOLOGY REPORT (SQ) ---
EXAM DESCRIPTION: FOOT RIGHT COMPLETE IMAGES COMPLETED DATE/TIME: 11/12/2019 5:31 pm REASON FOR STUDY: fell on his right foot x 5 days ago, + pain COMPARISON: None. NUMBER OF VIEWS: Three views. TECHNIQUE: AP, lateral and oblique radiographic images acquired of the right foot. LIMITATIONS: None. FINDINGS: MINERALIZATION: Normal. BONES: No acute fracture or dislocation. Calcaneal spurs. JOINTS: No effusions. SOFT TISSUES: Soft tissue vascular calcifications. No foreign object. OTHER: No other significant finding. IMPRESSION: 1. No acute osseous findings. TECHNICAL DOCUMENTATION: JOB ID: [id number] 2010 [employer]- All Rights Reserved Reading location - IP/workstation name: [email or web address]
--- NOTE | 2019-11-12 22:27 | ER Document Report ---
ED General - General Chief Complaint: Skin Problem Stated Complaint: INFECTION RT FOOT - DR REFERRED Time Seen by Provider: 11/12/19 16:29 Primary Care Provider: DANIEL ROWE MD [Primary Care Provider] - Follow up as needed Mode of Arrival: Ambulatory Information source: Patient Notes: Patient is an 84-year-old male who comes in today with a laceration to his right great toe and surrounding cellulitis. Apparently a few days ago he stubbed it on a carpet and split the skin open. He has a history of "poor circulation". Says he was seen by Dr. Rowe today and was told that he needed 3 days of IV antibiotics. At the time that I am seeing the patient the lab work is back and x-rays are back. I called Dr. Rowe and he told me to put the patient on the medical floor and he would take care of it. TRAVEL OUTSIDE OF THE [place] IN LAST 30 DAYS: No - Related Data Allergies/Adverse Reactions: codeine [Codeine] Allergy (Severe, Verified 03/19/18 16:29) Anaphylaxis Penicillins Allergy (Severe, Verified 03/19/18 16:29) Anaphylaxis aspirin [Aspirin] Allergy (Mild, Verified 03/19/18 16:29) RASH Past Medical History - Social History Smoking Status: Current Every Day Smoker Chew tobacco use (# tins/day): No Frequency of alcohol use: daily Drug Abuse: None Family History: Reviewed & Not Pertinent - Past Medical History Cardiac Medical History: Reports: Hx Coronary Artery Disease - STENTS X3, Hx Heart Attack, Hx Hypercholesterolemia, Hx Hypertension Pulmonary Medical History: Reports: Hx COPD, Hx Pneumonia Neurological Medical History: Denies: Hx Cerebrovascular Accident, Hx Seizures Renal/ Medical History: Denies: Hx Peritoneal Dialysis Musculoskeletal Medical History: Reports Hx Arthritis - SHOULDERS Psychiatric Medical History: Denies: Hx Depression Past Surgical History: Reports: Hx Cardiac Catheterization - stents placed - Immunizations Hx Diphtheria, Pertussis, Tetanus Vaccination: Yes Hx Pneumococcal Vaccination: 11/06/08 Review of Systems - Review of Systems Notes: Constitutional: No fevers. No chills. EENT: No eye redness. No eye pain. No ear pain. No sore throat. Cardiovascular: No chest pain. No palpitations. Respiratory: No cough. No shortness of breath. No respiratory distress. Gastrointestinal: No abdominal pain. No nausea, vomiting, or diarrhea. Genitourinary: Atraumatic. No lesions. No pain. No discharge. Musculoskeletal: Atraumatic. No swelling. No deformities. Positive laceration right great toe. Positive for bruising to the tips of the second third fourth and fifth toes Skin: No rash or lesions. Positive cellulitis Lymphatic: No swollen lymph nodes. Neurologic: No headache. No syncope. Psychiatric: No suicidal or homicidal ideation. Physical Exam - Vital signs Vitals: Temp Pulse Resp BP Pulse Ox 98.4 F 70 16 130/51 H 97 11/12/19 15:47 11/12/19 15:47 11/12/19 15:47 11/12/19 15:47 11/12/19 15:47 - Notes Notes: General: Well-developed, well-nourished. In no acute distress. Non-toxic appearing. Cardiac: Well-perfused. Regular rate and rhythm. No murmurs, rubs, or gallops. Pulmonary: No respiratory distress. No cyanosis. Bilateral lung fiels are clear to auscultation. Abdominal: Non-distended. Non-rigid. Bowels sounds are present in all four quadrants. No guarding or rebound. HEENT: Head is atraumatic. Conjunctivae not reddened. No tearing. PERRL. EOMI. Orbits atraumatic. No periorbital swelling or erythema. Oropharynx is without erythema, swelling, or exudates. Neck: Supple. No adenopathy. No meningismus. Dermatologic: Warm with good turgor. No rash. Atraumatic. Chest: Atraumatic. No chest wall tenderness to palpation. Musculoskeletal: There is an approximate only 3 cm laceration to the medial aspect of the right great toe which is slightly involving the interdigital webspace. Local cellulitis present with tenderness. No promise purulent drainage. No lymphangitis. Bruising and mild tenderness to the tips of the second third fourth and fifth toes. Genitourinary: Examination deferred Neurologic: No gross neurologic deficits. Psychiatric: Normal mood. Course - Re-evaluation Re-evalutation: 11/12/19 22:27 I placed a phone call to the patient's primary care doctor because they were told that he needed to be admitted for 3 days of IV antibiotics. Unbeknownst to me there was a direct admit envelope with inpatient admission orders in the patient's chart. The patient states that he had indicated when he was triaged that he was supposed to have been directly admitted to the hospital. I apologized to the patient and his family members and I notified the charge nurse that there had been a breakdown somewhere along the lines of communication. We will put in the test that were ordered by Dr. Rowe in the first place. - Vital Signs Vital signs: Temp Pulse Resp BP Pulse Ox 97.7 F 77 16 141/50 H 100 11/12/19 20:42 11/12/19 20:42 11/12/19 20:42 11/12/19 20:42 11/12/19 20:42 - Laboratory Result Diagrams: 11/12/19 16:50 11/12/19 16:50 Laboratory results interpreted by me: 11/12/19 11/12/19 16:50 16:50 RDW 14.1 H Sodium 135.0 L Glucose 113 H - Diagnostic Test Radiology reviewed: Reports reviewed Discharge - Discharge Clinical Impression: Cellulitis of right foot Condition: Good Disposition: ADMITTED INPATIENT Admitting Provider: Manfred Unit Admitted: Medical Floor Referrals: DANIEL ROWE MD [Primary Care Provider] - Follow up as needed
[2019-11-12] MEDS ORDERED: VANCOMYCIN HCL 0 MG in DEXTROSE 5%-WATER 250 ML IV NR (22:45)
[2019-11-12] MEDS: NORMAL SALINE 1000 ML 1,000 ML IV PRN (23:39)
[2019-11-13] MEDS ORDERED: PIPERACILLIN/TAZOBACTAM 3.375 GM VIAL IV PRN (01:11)
[2019-11-13] MEDS ORDERED: HYDROMORPHONE HCL INJ/PF 2 MG/ML AMPULE IV PRN (02:42)
[2019-11-13] MEDS ORDERED: VANCOMYCIN HCL INJ 1000 MG VIAL IV PRN ×2 (02:43→03:00)
[2019-11-13] MEDS ORDERED: VANCOMYCIN HCL 1,500 MG in DEXTROSE 5%-WATER 250 ML IV ONE (03:00)
[2019-11-13] MEDS ORDERED: VANCOMYCIN HCL 1,250 MG in DEXTROSE 5%-WATER 250 ML IV ONE (03:00)
[2019-11-13] MEDS ORDERED: AZTREONAM INJ 1 GM VIAL ONE (03:16)
[2019-11-13] MEDS ORDERED: VANCOMYCIN HCL INJ 500 MG VIAL ONE (03:17)
[2019-11-13] MEDS ORDERED: VANCOMYCIN HCL INJ 1000 MG VIAL ONE (03:17)
[2019-11-13] MEDS ORDERED: PIPERACILLIN/TAZOBACTAM 3.375 GM VIAL IV ONE (03:23)
[2019-11-13] MEDS: PIPERACILLIN SODIUM/TAZOBACTAM 3.375 GM in NORMAL SALINE 100 ML IV SCH ×3 (03:31→17:47)
[2019-11-13] MEDS: AZTREONAM 1 GM in DEXTROSE 5%-WATER 50 ML IV SCH ×3 (05:24→22:01)
[2019-11-13 05:26] LABS: ABSOLUTE BASOPHILS # (AUTO) 0.1 10^3/uL (0.0-0.2); ABSOLUTE EOSINOPHILS # (AUTO) 0.4 10^3/uL (0.0-0.6); ABSOLUTE LYMPHOCYTES (AUTO) 2.2 10^3/uL (0.5-4.7); ABSOLUTE MONOCYTES (AUTO) 0.8 10^3/uL (0.1-1.4); ABSOLUTE NEUT (AUTO) 5.9 10^3/uL (1.7-8.2); BASOPHILS % (AUTO) 0.7 % (0-2); HEMATOCRIT 41.4 % (37.9-51.0); HEMOGLOBIN 14.5 g/dL (13.5-17.0); LYMPHOCYTES % (AUTO) 23.6 % (13-45); MEAN CORPUSCULAR HEMOGLOBIN 32.2 pg (27.0-33.4); MEAN CORPUSCULAR HGB CONC 35.1 g/dL (32.0-36.0); MEAN CORPUSCULAR VOLUME 92 fl (80-97); MONOCYTES % (AUTO) 8.7 % (3-13); PLATELET COUNT 224 10^3/uL (150-450); TOTAL CELLS COUNTED % (AUTO) 100 %; WHITE BLOOD COUNT 9.3 10^3/uL (4.0-10.5)
[2019-11-13 05:51] LABS: ALBUMIN 3.6 g/dL (3.5-5.0); ALKALINE PHOSPHATASE 108 U/L (38-126); ANION GAP 8 (5-19); ASPARTATE AMINO TRANSFERASE 18 U/L (17-59); BILIRUBIN,DIRECT 0.2 mg/dL (0.0-0.4); BILIRUBIN,TOTAL 0.6 mg/dL (0.2-1.3); BLOOD UREA NITROGEN 10 mg/dL (7-20); CALCIUM 9.1 mg/dL (8.4-10.2); CARBON DIOXIDE 24 mmol/L (22-30); CHLORIDE 102 mmol/L (98-107); GLUCOSE 94 mg/dL (75-110); TOTAL PROTEIN 5.8 g/dL (6.3-8.2)
[2019-11-13] MEDS: ENOXAPARIN SODIUM INJ 40 MG/0.4 ML DISP.SYRIN SUBCUT SCH (10:29)
[2019-11-13] MEDS ORDERED: ALBUTEROL SULFATE HFA (90 MCG/PUFF) 8 GM MDI (1 MDI/ER DISP) IH PRN (15:29)
[2019-11-13] MEDS ORDERED: METOPROLOL SUCCINATE 50 MG PO SCH (15:30)
[2019-11-13] MEDS ORDERED: ATORVASTATIN CALCIUM 40 MG TABLET PO SCH (15:30)
[2019-11-13] MEDS ORDERED: ALBUTEROL SULFATE HFA (90 MCG/PUFF) 8 GM MDI IH PRN (16:16)
[2019-11-13] MEDS: LOSARTAN POTASSIUM 50 MG TABLET PO SCH (17:46)
[2019-11-13] MEDS: METFORMIN HCL 500 MG TABLET PO SCH (17:46)
[2019-11-13] MEDS: AMLODIPINE BESYLATE 5 MG TABLET PO SCH (17:47)
[2019-11-13] MEDS: METOPROLOL SUCCINATE 50 MG TAB.SR.24H PO SCH (17:47)
[2019-11-13] MEDS: PRAMIPEXOLE DI-HCL 0.25 MG TABLET PO SCH (18:38)
[2019-11-13] MEDS: VANCOMYCIN HCL 1,500 MG in DEXTROSE 5%-WATER 250 ML IV SCH (18:39)
--- NOTE | 2019-11-13 20:11 | PDOC H&P ---
History of Present Illness Admission Date/PCP: 11/12/19 22:45 DANIEL ROWE MD History of Present Illness: VIN LA JR is a 84 year old male,He has multiple comorbid conditions i ncluding, peripheral vascular disease, coronary artery disease, COPD, type 2 diabetes mellitus, tobacco dependence, he came to the office for evaluation of laceration of the right foot with a superimposed cellulitis, because of the multiple comorbid conditions and because of patient's age I felt patient needed inpatient care to administer intravenous antibiotic but unfortunately could not get a bed to admit patient directly from the office so patient was directed to the emergency room by the clerk supervisor, he spent very long hours in the ER before ultimately he was admitted to the hospital. Past Medical History Cardiac Medical History: Reports: Coronary Artery Disease - STENTS X3, Myocardial Infarction, Hyperlipidema, Hypertension, Peripheral Vascular Disease Pulmonary Medical History: Reports: Chronic Obstructive Pulmonary Disease (COPD), Pneumonia Endocrine Medical History: Reports: Diabetes Mellitus Type 2 Musculoskeltal Medical History: Reports: Arthritis - SHOULDERS Past Surgical History Past Surgical History: Reports: Cardiac Catheterization - stents placed Social History Smoking Status: Current Every Day Smoker Cigarettes Packs Per Day: 1.5 Electronic Cigarette use?: No Last Time Smoked: 11/12/2019 Frequency of Alcohol Use: Social Hx Recreational Drug Use: No Drugs: None Hx Prescription Drug Abuse: No Family History Family History: Reviewed & Not Pertinent Parental Family History Reviewed: Yes Children Family History Reviewed: Yes Sibling(s) Family History Reviewed.: Yes Medication/Allergy Home Medications: Amlodipine Besylate [Norvasc 5 mg Tablet] 5 mg PO DAILY 03/19/18 Atorvastatin Calcium [Lipitor 40 mg Tablet] 40 mg PO DAILY 03/19/18 Losartan Potassium [Cozaar 100 mg Tablet] 100 mg PO DAILY 03/19/18 Metformin HCl [Glucophage 500 mg Tablet] 500 mg PO DAILY tablet 03/22/18 Metoprolol Succinate [Kapspargo Sprinkle] 50 mg PO DAILY #90 cap.spr.24 03/22/18 Albuterol Sulfate [Albuterol Sulfate Hfa] 2 puff IH Q4HP PRN 11/13/19 Fluticasone/Umeclidin/Vilanter [Trelegy 100-62.5-25 Mcg Ellipta 14 Dose/Dpi] 1 puff IN DAILY 11/13/19 Pramipexole Di-HCl [Mirapex 0.25 mg Tablet] 0.25 mg PO DAILY 11/13/19 Allergies/Adverse Reactions: codeine [Codeine] Allergy (Severe, Verified 03/19/18 16:29) Anaphylaxis Penicillins Allergy (Severe, Verified 03/19/18 16:29) Anaphylaxis aspirin [Aspirin] Allergy (Mild, Verified 03/19/18 16:29) RASH Review of Systems Constitutional: ABSENT: chills, fever(s), headache(s), weight gain, weight loss Eyes: ABSENT: visual disturbances Ears: ABSENT: hearing changes Cardiovascular: ABSENT: chest pain, dyspnea on exertion, edema, orthropnea, palpitations Respiratory: ABSENT: cough, hemoptysis Gastrointestinal: ABSENT: abdominal pain, constipation, diarrhea, hematemesis, hematochezia, nausea, vomiting Genitourinary: ABSENT: dysuria, hematuria Integumentary: PRESENT: erythema. ABSENT: rash, wounds Neurological: ABSENT: abnormal gait, abnormal speech, confusion, dizziness, focal weakness, syncope Psychiatric: ABSENT: anxiety, depression, homidical ideation, suicidal ideation Endocrine: ABSENT: cold intolerance, heat intolerance, menstrual abnormalities, polydipsia, polyuria Hematologic/Lymphatic: ABSENT: easy bleeding, easy bruising, lymphadenopathy Physical Exam Vital Signs: Temp Pulse Resp BP Pulse Ox 98.0 F 65 18 125/56 L 96 11/13/19 19:10 11/13/19 19:10 11/13/19 19:10 11/13/19 19:10 11/13/19 19:10 Intake & Output 11/12/19 11/13/19 11/14/19 06:59 06:59 06:59 Intake Total 810 1250 Balance 810 1250 Weight 93.9 kg General appearance: PRESENT: no acute distress Head exam: PRESENT: atraumatic, normocephalic Eye exam: PRESENT: PERRLA Ear exam: PRESENT: normal external ear exam Mouth exam: PRESENT: moist, tongue midline Neck exam: PRESENT: full ROM Respiratory exam: PRESENT: clear to auscultation lillian Cardiovascular exam: PRESENT: RRR, +S1, +S2 Pulses: PRESENT: normal dorsalis pedis pul, +2 pedal pulses bilateral Vascular exam: PRESENT: normal capillary refill GI/Abdominal exam: PRESENT: normal bowel sounds, soft Rectal exam: PRESENT: deferred Neurological exam: PRESENT: alert, CN II-XII grossly intact Psychiatric exam: PRESENT: appropriate affect, normal mood Skin exam: PRESENT: dry, erythema, intact, warm Results Laboratory Results: 11/13/19 04:25 11/13/19 04:25 11/13/19 11/13/19 04:25 04:25 WBC 9.3 RBC 4.50 Hgb 14.5 Hct 41.4 MCV 92 MCH 32.2 MCHC 35.1 RDW 14.0 Plt Count 224 Seg Neutrophils % 63.0 Sodium 133.5 L Potassium 4.0 Chloride 102 Carbon Dioxide 24 Anion Gap 8 BUN 10 Creatinine 0.63 Est GFR ( Amer) > 60 Glucose 94 Calcium 9.1 Total Bilirubin 0.6 AST 18 Alkaline Phosphatase 108 Total Protein 5.8 L Albumin 3.6 Impressions: Toe X-Ray 11/12/19 16:41 IMPRESSION: 1. No acute osseous findings. No evidence of opaque foreign objects. Foot X-Ray 11/12/19 17:12 IMPRESSION: 1. No acute osseous findings. Assessment & Plan - Diagnosis (1) Cellulitis of right foot Is this a current diagnosis for this admission?: Yes Plan: He has cellulitis of the left foot he will be treated with vancomycin and Zosyn but he has allergy to penicillin this will be substituted with aztreonam (2) Coronary artery disease Qualifiers: Coronary Disease-Associated Artery/Lesion type: [place] artery [place] vs. transplanted heart: [place] heart Associated angina: without angina Qualified Code(s): I25.10 - Atherosclerotic heart disease of [place] coronary artery without angina pectoris Is this a current diagnosis for this admission?: Yes (3) Peripheral vascular disease Is this a current diagnosis for this admission?: Yes - Time Time Spent: Greater than 70 Minutes Medications reviewed and adjusted accordingly: Yes Anticipated Discharge Disposition: Home, Self Care Anticipated Discharge Timeframe: within 72 hours
--- NOTE | 2019-11-13 20:14 | PDOC PROGRESS REPORT ---
Subjective Progress Note for:: 11/13/19 Subjective:: Patient admitted for the management of cellulitis of the right foot, there is some improvement Reason For Visit: CELLULITIS OF RIGHT FOOT Physical Exam Vital Signs: Temp Pulse Resp BP Pulse Ox 98.0 F 65 18 125/56 L 96 11/13/19 19:10 11/13/19 19:10 11/13/19 19:10 11/13/19 19:10 11/13/19 19:10 Intake & Output 11/12/19 11/13/19 11/14/19 06:59 06:59 06:59 Intake Total 810 1250 Balance 810 1250 Weight 93.9 kg General appearance: PRESENT: no acute distress Eye exam: PRESENT: PERRLA Respiratory exam: PRESENT: clear to auscultation lillian Cardiovascular exam: PRESENT: +S1, +S2 GI/Abdominal exam: PRESENT: soft Neurological exam: PRESENT: alert, CN II-XII grossly intact Skin exam: PRESENT: erythema Results Laboratory Results: 11/13/19 04:25 11/13/19 04:25 11/13/19 11/13/19 04:25 04:25 WBC 9.3 RBC 4.50 Hgb 14.5 Hct 41.4 MCV 92 MCH 32.2 MCHC 35.1 RDW 14.0 Plt Count 224 Seg Neutrophils % 63.0 Sodium 133.5 L Potassium 4.0 Chloride 102 Carbon Dioxide 24 Anion Gap 8 BUN 10 Creatinine 0.63 Est GFR ( Amer) > 60 Glucose 94 Calcium 9.1 Total Bilirubin 0.6 AST 18 Alkaline Phosphatase 108 Total Protein 5.8 L Albumin 3.6 Impressions: Toe X-Ray 11/12/19 16:41 IMPRESSION: 1. No acute osseous findings. No evidence of opaque foreign objects. Foot X-Ray 11/12/19 17:12 IMPRESSION: 1. No acute osseous findings. Assessment & Plan - Diagnosis (1) Cellulitis of right foot Is this a current diagnosis for this admission?: Yes Plan: Continue IV antibiotic (2) Coronary artery disease Qualifiers: Coronary Disease-Associated Artery/Lesion type: [place] artery [place] vs. transplanted heart: [place] heart Associated angina: without angina Qualified Code(s): I25.10 - Atherosclerotic heart disease of [place] coronary artery without angina pectoris Is this a current diagnosis for this admission?: Yes (3) Peripheral vascular disease Is this a current diagnosis for this admission?: Yes - Time Time Spent with patient: 25-34 minutes Level of Care: MEDICAL Medications reviewed and adjusted accordingly: Yes Anticipated discharge: Home
[2019-11-13] MEDS: NORMAL SALINE 1000 ML 1,000 ML IV PRN (22:01)
[2019-11-14] MEDS: PIPERACILLIN SODIUM/TAZOBACTAM 3.375 GM in NORMAL SALINE 100 ML IV SCH ×3 (02:39→18:04)
[2019-11-14] MEDS: AZTREONAM 1 GM in DEXTROSE 5%-WATER 50 ML IV SCH ×3 (05:19→23:52)
[2019-11-14] MEDS: VANCOMYCIN HCL 1,500 MG in DEXTROSE 5%-WATER 250 ML IV SCH ×2 (06:45→19:03)
[2019-11-14] MEDS ORDERED: INFLUENZA QUAD (6MOS+) 2020-21 VAC 0.5 ML SYR IM ONE (08:00)
[2019-11-14] MEDS: METOPROLOL SUCCINATE 50 MG TAB.SR.24H PO SCH (09:40)
[2019-11-14] MEDS: METFORMIN HCL 500 MG TABLET PO SCH (09:40)
[2019-11-14] MEDS: LOSARTAN POTASSIUM 50 MG TABLET PO SCH (09:40)
[2019-11-14] MEDS: AMLODIPINE BESYLATE 5 MG TABLET PO SCH (09:41)
[2019-11-14] MEDS: ENOXAPARIN SODIUM INJ 40 MG/0.4 ML DISP.SYRIN SUBCUT SCH (09:42)
[2019-11-14] MEDS: PRAMIPEXOLE DI-HCL 0.25 MG TABLET PO SCH (09:47)
[2019-11-14] MEDS: FLUTICASONE/UMECLIDIN/VILANTER 100-62.5-25 MCG/DOSE IH SCH (09:49)
[2019-11-14] MEDS: NORMAL SALINE 1000 ML 1,000 ML IV PRN (18:05)
[2019-11-14] MEDS ORDERED: ATORVASTATIN CALCIUM 40 MG TABLET PO SCH (22:00)
--- NOTE | 2019-11-14 22:19 | PDOC PROGRESS REPORT ---
Subjective Progress Note for:: 11/14/19 Subjective:: Patient admitted for the management of cellulitis of the right foot, there is some improvement Reason For Visit: CELLULITIS OF RIGHT FOOT Physical Exam Vital Signs: Temp Pulse Resp BP Pulse Ox 97.8 F 69 20 116/63 95 11/14/19 15:08 11/14/19 15:08 11/14/19 15:08 11/14/19 15:08 11/14/19 15:08 Intake & Output 11/13/19 11/14/19 11/15/19 06:59 06:59 06:59 Intake Total 810 2850 2019 Balance 810 2850 2019 Weight 93.9 kg 94.6 kg General appearance: PRESENT: no acute distress Eye exam: PRESENT: PERRLA Respiratory exam: PRESENT: clear to auscultation lillian Cardiovascular exam: PRESENT: +S1, +S2 GI/Abdominal exam: PRESENT: soft Results Laboratory Results: 11/13/19 04:25 11/13/19 04:25 11/13/19 03:05 Toe - Right Big Toe Gram Stain - Final Impressions: Toe X-Ray 11/12/19 16:41 IMPRESSION: 1. No acute osseous findings. No evidence of opaque foreign objects. Foot X-Ray 11/12/19 17:12 IMPRESSION: 1. No acute osseous findings. Assessment & Plan - Diagnosis (1) Cellulitis of right foot Is this a current diagnosis for this admission?: Yes Plan: Continue IV antibiotic (2) Coronary artery disease Qualifiers: Coronary Disease-Associated Artery/Lesion type: [place] artery [place] vs. transplanted heart: [place] heart Associated angina: without angina Qualified Code(s): I25.10 - Atherosclerotic heart disease of [place] coronary artery without angina pectoris Is this a current diagnosis for this admission?: Yes (3) Peripheral vascular disease Is this a current diagnosis for this admission?: Yes - Time Time Spent with patient: 15-24 minutes Level of Care: MEDICAL Medications reviewed and adjusted accordingly: Yes Anticipated discharge: Home
[2019-11-15] MEDS: PIPERACILLIN SODIUM/TAZOBACTAM 3.375 GM in NORMAL SALINE 100 ML IV SCH ×2 (02:48→11:15)
[2019-11-15] MEDS: AZTREONAM 1 GM in DEXTROSE 5%-WATER 50 ML IV SCH ×2 (05:49→16:18)
[2019-11-15 06:44] LABS: VANCOMYCIN,TROUGH 13.9 ug/mL (5.0-20.0)
[2019-11-15] MEDS: VANCOMYCIN HCL 1,500 MG in DEXTROSE 5%-WATER 250 ML IV SCH (06:51)
[2019-11-15] MEDS ORDERED: SILVER SULFADIAZINE 1% CREAM 50 GM TP SCH (10:00)
[2019-11-15] MEDS: LOSARTAN POTASSIUM 50 MG TABLET PO SCH (11:02)
[2019-11-15] MEDS: METFORMIN HCL 500 MG TABLET PO SCH (11:03)
[2019-11-15] MEDS: AMLODIPINE BESYLATE 5 MG TABLET PO SCH (11:03)
[2019-11-15] MEDS: METOPROLOL SUCCINATE 50 MG TAB.SR.24H PO SCH (11:03)
[2019-11-15] MEDS: PRAMIPEXOLE DI-HCL 0.25 MG TABLET PO SCH (11:04)
[2019-11-15] MEDS: ENOXAPARIN SODIUM INJ 40 MG/0.4 ML DISP.SYRIN SUBCUT SCH (11:05)
[2019-11-15] MEDS: FLUTICASONE/UMECLIDIN/VILANTER 100-62.5-25 MCG/DOSE IH SCH (11:05)
[2019-11-15 15:41] VITALS: BP 117/61
--- NOTE | 2019-11-15 20:12 | PDOC DISCHARGE SUMMARY ---
Impression - Admit/DC Date/PCP Admission Date/Primary Care Provider: 11/12/19 22:45 DANIEL ROWE MD Discharge Date: 11/15/19 - Discharge Diagnosis (1) Cellulitis of right foot Is this a current diagnosis for this admission?: Yes (2) Coronary artery disease Is this a current diagnosis for this admission?: Yes (3) Peripheral vascular disease Is this a current diagnosis for this admission?: Yes (4) Laceration of left foot Is this a current diagnosis for this admission?: Yes - Additional Information Referrals: DANIEL ROWE MD [Primary Care Provider] - Follow up as needed Prescriptions: Clindamycin HCl 300 mg PO Q8H #21 capsule Silver Sulfadiazine [Silvadene 1% Cream 50 gm] 1 applic TP BID #50 grams Home Medications: Amlodipine Besylate [Norvasc 5 mg Tablet] 5 mg PO DAILY 03/19/18 Atorvastatin Calcium [Lipitor 40 mg Tablet] 40 mg PO DAILY 03/19/18 Losartan Potassium [Cozaar 100 mg Tablet] 100 mg PO DAILY 03/19/18 Metformin HCl [Glucophage 500 mg Tablet] 500 mg PO DAILY tablet 03/22/18 Metoprolol Succinate [Kapspargo Sprinkle] 50 mg PO DAILY #90 cap.spr.24 03/22/18 Albuterol Sulfate [Albuterol Sulfate Hfa] 2 puff IH Q4HP PRN 11/13/19 Fluticasone/Umeclidin/Vilanter [Trelegy 100-62.5-25 Mcg Ellipta 14 Dose/Dpi] 1 puff IN DAILY 11/13/19 Pramipexole Di-HCl [Mirapex 0.25 mg Tablet] 0.25 mg PO DAILY 11/13/19 Clindamycin HCl 300 mg PO Q8H #21 capsule 11/15/19 Silver Sulfadiazine [Silvadene 1% Cream 50 gm] 1 applic TP BID #50 grams 11/15/19 History of Present Illiness History of Present Illness: VIN LA JR is a 84 year old male,He has multiple comorbid conditions including, peripheral vascular disease, coronary artery disease, COPD, type 2 diabetes mellitus, tobacco dependence, he came to the office for evaluation of laceration of the right foot with a superimposed cellulitis, because of the multiple comorbid conditions and because of patient's age I felt patient needed inpatient care to administer intravenous antibiotic but unfortunately could not get a bed to admit patient directly from the office so patient was directed to the emergency room by the filing and polishing supervisor, he spent very long hours in the ER before ultimately he was admitted to the hospital. Hospital Course Hospital Course: Patient was admitted for the evaluation of cellulitis of the right foot, laceration of the foot, She was treated with IV antibiotic vancomycin and aztreonam with improvement of his symptoms Physical Exam Vital Signs: Temp Pulse Resp BP Pulse Ox 97.7 F 68 16 117/61 98 11/15/19 17:55 11/15/19 17:55 11/15/19 17:55 11/15/19 17:55 11/15/19 17:55 Intake & Output 11/14/19 11/15/19 11/16/19 06:59 06:59 06:59 Intake Total 2850 2620 730 Balance 2850 2620 730 Weight 94.6 kg 93.2 kg General appearance: PRESENT: no acute distress Eye exam: PRESENT: PERRLA Respiratory exam: PRESENT: clear to auscultation lillian Cardiovascular exam: PRESENT: +S1, +S2 GI/Abdominal exam: PRESENT: soft Extremities exam: PRESENT: tenderness, other - mild erythema of the right foot Neurological exam: PRESENT: alert, CN II-XII grossly intact Results Laboratory Results: WBC 9.3 10^3/uL (4.0-10.5) 11/13/19 04:25 RBC 4.50 10^6/uL (4.35-5.55) 11/13/19 04:25 Hgb 14.5 g/dL (13.5-17.0) 11/13/19 04:25 Hct 41.4 % (37.9-51.0) 11/13/19 04:25 MCV 92 fl (80-97) 11/13/19 04:25 MCH 32.2 pg (27.0-33.4) 11/13/19 04:25 MCHC 35.1 g/dL (32.0-36.0) 11/13/19 04:25 RDW 14.0 % (11.5-14.0) 11/13/19 04:25 Plt Count 224 10^3/uL (150-450) 11/13/19 04:25 Lymph % (Auto) 23.6 % (13-45) 11/13/19 04:25 [place] % (Auto) 8.7 % (3-13) 11/13/19 04:25 Eos % (Auto) 4.0 % (0-6) 11/13/19 04:25 Baso % (Auto) 0.7 % (0-2) 11/13/19 04:25 Absolute Neuts (auto) 5.9 10^3/uL (1.7-8.2) 11/13/19 04:25 Absolute Lymphs (auto) 2.2 10^3/uL (0.5-4.7) 11/13/19 04:25 Absolute Monos (auto) 0.8 10^3/uL (0.1-1.4) 11/13/19 04:25 Absolute Eos (auto) 0.4 10^3/uL (0.0-0.6) 11/13/19 04:25 Absolute Basos (auto) 0.1 10^3/uL (0.0-0.2) 11/13/19 04:25 Seg Neutrophils % 63.0 % (42-78) 11/13/19 04:25 Sodium 133.5 mmol/L (137-145) L 11/13/19 04:25 Potassium 4.0 mmol/L (3.6-5.0) 11/13/19 04:25 Chloride 102 mmol/L (98-107) 11/13/19 04:25 Carbon Dioxide 24 mmol/L (22-30) 11/13/19 04:25 Anion Gap 8 (5-19) 11/13/19 04:25 BUN 10 mg/dL (7-20) 11/13/19 04:25 Creatinine 0.65 mg/dL (0.52-1.25) 11/15/19 05:31 Est GFR ( Amer) > 60 (>60) 11/15/19 05:31 Est GFR (MDRD) Non-Af > 60 (>60) 11/15/19 05:31 Glucose 94 mg/dL (75-110) 11/13/19 04:25 Hemoglobin A1c % 5.5 % (4.7-6.0) 11/13/19 04:25 Calcium 9.1 mg/dL (8.4-10.2) 11/13/19 04:25 Total Bilirubin 0.6 mg/dL (0.2-1.3) 11/13/19 04:25 Direct Bilirubin 0.2 mg/dL (0.0-0.4) 11/13/19 04:25 Neonat Total Bilirubin Not Reportable 11/13/19 04:25 Neonat Direct Bilirubin Not Reportable 11/13/19 04:25 Neonat Indirect Bili Not Reportable 11/13/19 04:25 AST 18 U/L (17-59) 11/13/19 04:25 ALT 10 U/L (<50) 11/13/19 04:25 Alkaline Phosphatase 108 U/L (38-126) 11/13/19 04:25 Total Protein 5.8 g/dL (6.3-8.2) L 11/13/19 04:25 Albumin 3.6 g/dL (3.5-5.0) 11/13/19 04:25 Time Trough Drawn 0531 11/15/19 05:31 Vancomycin Trough 13.9 ug/mL (5.0-20.0) 11/15/19 05:31 Impressions: Toe X-Ray 11/12/19 16:41 IMPRESSION: 1. No acute osseous findings. No evidence of opaque foreign objects. Foot X-Ray 11/12/19 17:12 IMPRESSION: 1. No acute osseous findings. Stroke Is this a Stroke Patient?: No Acute Heart Failure Is this a Heart Failure Patient?: No
== END 2019-11-15 18:10 | disposition home or self-care (01) ==
LOC: ER 15:32 → EH 22:45 → INTOOBSV 22:45 → 4N 23:35
PROVIDERS: ADMIT Internal Medicine; ATTEND Internal Medicine
DX: L03.115 Cellulitis of right lower limb (principal); I25.10 Atherosclerotic heart disease of native coronary artery without angina pectoris; I73.9 Peripheral vascular disease, unspecified; S91.111A Laceration without foreign body of right great toe without damage to nail, initial encounter; M25.561 Pain in right knee; W18.09XA Striking against other object with subsequent fall, initial encounter; E11.51 Type 2 diabetes mellitus with diabetic peripheral angiopathy without gangrene; F17.210 Nicotine dependence, cigarettes, uncomplicated; J44.9 Chronic obstructive pulmonary disease, unspecified; Z23 Encounter for immunization; Z95.5 Presence of coronary angioplasty implant and graft; Z79.899 Other long term (current) drug therapy; Z88.0 Allergy status to penicillin; Z79.84 Long term (current) use of oral hypoglycemic drugs; Z88.8 Allergy status to other drugs, medicaments and biological substances
CPT/HCPCS: 90471; 99285; 36415 ×3; 87040; 87070; 87205; 82565; 85025 ×2; 87077; 80076; 80048 ×2; 87186; 80202; 83036; 73630; 73660; 90715; 90686; G0378 ×3; G0008; A9270 ×17; J1650 ×3; J7060 ×6; J7050 ×3; J7030 ×3; J3370 ×3; J3490 ×4; J2543 ×3

== ENCOUNTER → 2019-11-22 | Outpatient (CLI) | payer MEDICARE ==
--- NOTE | 2019-11-22 10:49 | RADIOLOGY REPORT (SQ) ---
EXAM DESCRIPTION: KNEE RIGHT 2 VIEWS IMAGES COMPLETED DATE/TIME: 11/22/2019 10:39 am REASON FOR STUDY: PAIN IN RT KNEE M25.561 PAIN IN RIGHT KNEE COMPARISON: None. NUMBER OF VIEWS: Two views. TECHNIQUE: AP and lateral radiographic images acquired of the right knee. LIMITATIONS: None. FINDINGS: MINERALIZATION: Normal. BONES: No acute fracture or dislocation. No worrisome bone lesions. JOINT: No effusion. SOFT TISSUES: Extensive femoral/ popliteal atherosclerosis. OTHER: No other significant finding. IMPRESSION: Normal right knee. Atherosclerosis as described. TECHNICAL DOCUMENTATION: JOB ID: [id number] 2010 [employer]- All Rights Reserved Reading location - IP/workstation name: [email or web address]
== END ==
LOC: OD 10:19
PROVIDERS: ATTEND Internal Medicine
DX: I70.201 Unspecified atherosclerosis of native arteries of extremities, right leg (principal); M25.561 Pain in right knee